=== PATIENT | male | born 1955 | race Caucasian/White ===

== ENCOUNTER → 2020-01-28 09:00 | Outpatient (BNVA) | payer MEDICARE, SELFPAY | PROVIDERS: PCP Family Medicine; Visit Provider Nurse Practitioner Family | DX: I10 Essential (primary) hypertension (principal); Z68.27 Body mass index [BMI] 27.0-27.9, adult; R03.0 Elevated blood-pressure reading, without diagnosis of hypertension | CPT/HCPCS: 80053; 80061; 84439; 84443; 85025 ==

== ENCOUNTER → 2021-01-30 10:17 | Outpatient (BNVA) | payer MEDICARE, SELFPAY | PROVIDERS: PCP Family Medicine; Visit Provider Nurse Practitioner Family | DX: I10 Essential (primary) hypertension (principal); Z68.27 Body mass index [BMI] 27.0-27.9, adult | CPT/HCPCS: 80053; 80061; 84439; 84443; 85025 ==

== ENCOUNTER → 2021-08-08 12:31 | Outpatient (BNVA) | payer MEDICARE, SELFPAY | PROVIDERS: PCP Family Medicine; Visit Provider Nurse Practitioner Family | DX: R31.0 Gross hematuria (principal) | CPT/HCPCS: 51798; 52000; 81003; 84153; 99203 ==

== ENCOUNTER 2021-08-09 13:10 | Outpatient (CLI) | payer MEDICARE, SELFPAY | END 2021-08-09 13:11 | disposition home or self-care (01) | LOC: LAB 13:13 | PROVIDERS: PCP Family Medicine; Visit Provider Urology | DX: R31.0 Gross hematuria (principal) | CPT/HCPCS: 87086; 88112 ==

== ENCOUNTER 2021-09-14 09:20 | Outpatient (CLI) | payer MEDICARE, SELFPAY ==
--- NOTE | 2021-09-14 10:00 | CT_ITS ---
WS: [id number] CT ABDOMEN PELVIS TECHNIQUE: Noncontrast CT of the abdomen and contrast-enhanced CT of the abdomen and pelvis with enid nal and sagittal reformatted images. CLINICAL INFORMATION: GROSS HEMATURIA COMPARISON: None. DLP: 3750.[address] scans at [facility] use at least one of these dose optimization techniques: automated e xposure control; mA and/or kV adjustment per patient size (includes targeted exams where dose is matc hed to clinical indication); or iterative reconstruction. FINDINGS: Diffuse fatty infiltration of the liver. Normal portal vein and splenic vein. Normal gallbladder. Nor mal GE junction. Normal spleen. Normal pancreas. Lung bases are well aerated. Normal caliber abdomina l aorta. Aortic calcification. Heterogeneous enhancing enlarged prostate measuring 4.5 CM. Recommend correlation PSA. Sigmoid diverticulosis. No evidence of acute diverticulitis. Fat-containing RIGHT in guinal hernia. Adrenal glands are normal. Normal renal parenchymal enhancement. No hydronephrosis. No obstructing re nal or ureteral calculi. Normal ureteral excretion on the delayed imaging. Hypertrophic changes lumbar spine. Mild perinephric edema can be seen with renal insufficiency. CT/CT abdomen pelvis wo/w [id number] IMPRESSION: 1. Normal bilateral renal parenchymal enhancement. No hydronephrosis. 2. No obstructing renal or ureteral calculi. 3. Normal excretion on the delayed images. 4. Bladder appears normal. 5. Heterogeneous enlarged prostate measuring 4.5 CM. Recommend correlation PSA . 6. No other acute findings.
[2021-09-14 10:21] LABS: Blood Urea Nitrogen 24 mg/dL (8-23)
[2021-09-14 10:22] LABS: Glomerular Filtration Rate 66.8 mL/min (90-130)
[2021-09-14] MEDS: iohexol 300 mg/mL 100 mL Btl IV (10:52)
== END 2021-09-14 09:21 | disposition home or self-care (01) ==
PROVIDERS: PCP Family Medicine; Visit Provider Urology
DX: R31.0 Gross hematuria (principal); N40.0 Benign prostatic hyperplasia without lower urinary tract symptoms
CPT/HCPCS: 74178; 81003; 82565; 84520; 99213

== ENCOUNTER → 2022-05-10 16:05 | Outpatient (BNVA) | payer MEDICARE, SELFPAY | PROVIDERS: PCP Family Medicine; Visit Provider Nurse Practitioner Family | DX: I10 Essential (primary) hypertension (principal); Z68.27 Body mass index [BMI] 27.0-27.9, adult | CPT/HCPCS: 80053; 80061; 84443 ==

== ENCOUNTER → 2022-09-12 07:44 | Outpatient (BNVA) | payer MEDICARE, SELFPAY | PROVIDERS: PCP Family Medicine; Visit Provider Urology | DX: R31.0 Gross hematuria (principal) | CPT/HCPCS: 81003; 99213 ==

== ENCOUNTER → 2022-09-30 15:27 | Outpatient (BNVA) | payer MEDICARE, SELFPAY | PROVIDERS: PCP Family Medicine; Visit Provider Otolaryngology | DX: H93.13 Tinnitus, bilateral (principal); J34.2 Deviated nasal septum | CPT/HCPCS: 99203 ==

== ENCOUNTER → 2022-10-07 14:45 | Outpatient (BNVA) | payer MEDICARE, SELFPAY | PROVIDERS: PCP Family Medicine; Referring Provider Nurse Practitioner Family; Visit Provider Dermatology | DX: L57.0 Actinic keratosis (principal); D04.61 Carcinoma in situ of skin of right upper limb, including shoulder; D22.5 Melanocytic nevi of trunk; L81.4 Other melanin hyperpigmentation; L82.1 Other seborrheic keratosis; Z12.83 Encounter for screening for malignant neoplasm of skin; Z71.89 Other specified counseling | CPT/HCPCS: 11102; 17000; 17003; 99203 ==

== ENCOUNTER → 2022-10-28 11:01 | Outpatient (BNVA) | payer MEDICARE, SELFPAY | PROVIDERS: PCP Family Medicine; Visit Provider Dermatology | DX: D04.61 Carcinoma in situ of skin of right upper limb, including shoulder (principal) | CPT/HCPCS: 17262 ==

== ENCOUNTER 2023-01-08 13:31 | Outpatient (CLI) | payer MEDICARE, SELFPAY ==
--- NOTE | 2023-01-08 13:36 | XR_ITS ---
WS: [id number] EXAMINATION: XR lumbar spine 2-3V* [id number] REASON FOR EXAM: M54.50 - Low back pain, unspecified COMPARISON: None available. ORDER DATE: 01/08/2023 1:38 PM FINDINGS: Generalized degenerative spinal changes are seen including moderate degenerative endplate changes and marginal osteophytes. There is prominent narrowing of the intervertebral disc with vacuum disc french e at L5-S1. There is no evidence of acute compression deformities or spondylolisthesis. 5 degree levo scoliosis centered at the mid lumbar level faint calcification superimpose the upper half of the left kidney may represent renal calculi. There is prominent atherosclerotic aortoiliac calcified plaque IMPRESSION: MODERATE DEGENERATIVE SPINE CHANGE AND SPONDYLOSIS.
== END 2023-01-08 13:32 | disposition home or self-care (01) ==
PROVIDERS: PCP Family Medicine; Visit Provider Family Medicine
DX: M47.896 Other spondylosis, lumbar region (principal); M54.50 Low back pain, unspecified
CPT/HCPCS: 72100

== ENCOUNTER 2023-02-05 14:59 | Outpatient (CLI) | payer MEDICARE, SELFPAY ==
--- NOTE | 2023-02-05 15:15 | MR_ITS ---
WS: [id number] MRI LUMBAR SPINE NONCONTRAST HISTORY: Chronic low back pain down both legs. COMPARISON: Lumbar spine radiographs 01/08/2023 TECHNIQUE: Sagittal and axial multisequence imaging is submitted. Mild cervical spondylosis. Central disc protrusion at T3-4 with mild contact on the thoracic cord. LEFT lumbar scoliosis. Disc spaces are narrowed and desiccated. Disc bulging and osteophytes at all levels. Conus terminates normally at L1-2 disc level. L1-L2: Diffuse moderate annular disc bulging with fissures centrally. Mild ligamentum flavum and face t arthritis. Disc bulging contributing to mild subarticular and foraminal stenosis. L2-L3: Diffuse annular disc bulging with a moderate to large central disc protrusion contacting and d eforming the thecal sac and the nerve roots. There is also disc contact on the traversing L3 nerve ro ots. Moderate to severe central, bilateral subarticular recess and foraminal stenosis, greater on the RIGHT than the LEFT. L3-L4: Diffuse annular disc bulging asymmetric to the LEFT. Marked ligamentum flavum and facet arthri tis. Combination of findings causing moderate to severe central, bilateral subarticular recess and fo raminal stenosis, LEFT greater than RIGHT. There is significant contact on the traversing L4 nerve ro ots. L4-L5: Marked annular disc bulging with a central broad-based disc protrusion. Additional smaller dis c protrusions versus annular bulging in the foramina. There is severe central and bilateral subarticu lar recess stenosis. Moderate to severe foraminal stenosis. Severe ligamentum flavum and facet arthri tis. L5-S1: Marked annular disc bulging and osteophytic ridging. Central to LEFT paracentral disc protrusi on with significant encroachment into the subarticular recess and contact on the S1 nerve root. There is additional contact on the RIGHT S1 nerve root but to a lesser extent. Severe central and bilatera l subarticular recess and LEFT foramen stenosis. Moderate RIGHT foramen stenosis. IMPRESSION: 1. Advanced degenerative disc and spondylitic changes throughout the lumbar spine with multiple level s of stenosis. 2. L2-3: Moderate to severe central, bilateral subarticular recess and foraminal stenosis. Significan t disc contact on the traversing L3 nerve roots. 3. L3-4: Moderate to severe central, bilateral subarticular recess and foraminal stenosis, LEFT great er than RIGHT. Significant contact on the traversing L4 nerve roots. 4. L4-5: Severe central and bilateral subarticular recess stenosis. Moderate to severe foraminal sten osis. Severe ligamentum flavum and facet arthritis. 5. L5-S1: Central to LEFT paracentral disc protrusion with significant encroachment into the subartic ular recess. Greatest contact on the LEFT S1 nerve root but both nerve roots are involved. Severe nabeel tral, bilateral subarticular recess and LEFT foramen stenosis. Moderate RIGHT foramen stenosis. 6. No acute fracture. Degenerative LEFT scoliosis.
== END 2023-02-05 15:00 | disposition home or self-care (01) ==
LOC: RAD 15:00
PROVIDERS: PCP Family Medicine; Visit Provider Family Medicine
DX: M47.27 Other spondylosis with radiculopathy, lumbosacral region (principal); M51.17 Intervertebral disc disorders with radiculopathy, lumbosacral region; M48.07 Spinal stenosis, lumbosacral region; M41.57 Other secondary scoliosis, lumbosacral region; G89.29 Other chronic pain; H90.3 Sensorineural hearing loss, bilateral; H93.13 Tinnitus, bilateral
CPT/HCPCS: 72148; 99214

== ENCOUNTER 2023-04-01 12:41 | Outpatient (CLI) | payer MEDICARE, SELFPAY ==
--- NOTE | 2023-04-01 13:00 | MR_ITS ---
WS: [id number] MRI HEAD WITH CONTRAST WITH ATTENTION TO THE INTERNAL AUDITORY CANALS TECHNIQUE: Sagittal T1, T2 axial, T2 axial flair, axial susceptibility weighted imaging, axial diffus ion weighted images, and coronal T2 images were obtained. Pre and post T1 axial and post T1 coronal i mages. ADC and FSPGR images. Post gadolinium images with attention to the internal auditory canals. A xial fiesta imaging. CLINICAL INFORMATION: hearing loss COMPARISON: None. FINDINGS: No evidence of restricted diffusion to suggest acute ischemia. Ventricular system and basilar ciste rns are patent. No hemosiderin on the susceptibly weighted images. Normal posterior fossa. Normal vas cular flow voids at the skull base. No extra-axial fluid collections. No evidence of mass or mass eff ect. Mild mucosal thickening in the paranasal sinuses. Mastoid air cells are well aerated. Normal pos terior nasopharynx. Minimal small vessel changes. Mild parenchymal volume loss. Proximal 7th and 8th cranial nerves are n ormal in appearance. Normal trigeminal nerve root entry zones. No evidence of enhancing IAC or CP ang le mass. No abnormal intracranial enhancement. Normal dural venous sinuses. IMPRESSION: 1. No evidence of restricted diffusion to suggest acute ischemia. 2. Minimal small vessel changes. Mild parenchymal volume loss. 3. No evidence of enhancing IAC or CP angle mass. 4. Mild mucosal thickening in the paranasal sinuses. Mastoid air cells are well aerated.
[2023-04-01] MEDS: gadobenate dimeglumine 20 mL vial IV (13:37)
== END 2023-04-01 12:42 | disposition home or self-care (01) ==
LOC: RAD 12:42
PROVIDERS: PCP Family Medicine; Visit Provider Otolaryngology
DX: H90.3 Sensorineural hearing loss, bilateral (principal)
CPT/HCPCS: 70553; A9577

== ENCOUNTER → 2023-04-22 08:51 | Outpatient (BNVA) | payer MEDICARE, SELFPAY | PROVIDERS: PCP Family Medicine; Visit Provider Orthopaedic Surgery | DX: M48.062 Spinal stenosis, lumbar region with neurogenic claudication; Z01.812 Encounter for preprocedural laboratory examination | CPT/HCPCS: 36415; 80053; 81003; 85025; 99204 ==

== ENCOUNTER → 2023-05-01 15:13 | Outpatient (BNVA) | payer MEDICARE, SELFPAY | PROVIDERS: PCP Family Medicine; Visit Provider Dermatology | DX: Z85.828 Personal history of other malignant neoplasm of skin (principal); L82.1 Other seborrheic keratosis; L82.0 Inflamed seborrheic keratosis; D48.5 Neoplasm of uncertain behavior of skin; L57.0 Actinic keratosis; L57.8 Other skin changes due to chronic exposure to nonionizing radiation | CPT/HCPCS: 11102; 17000; 17110; 99213 ==

== ENCOUNTER 2023-05-15 05:49 | Day surgery (SDC) | payer MEDICARE, SELFPAY ==
[2023-05-15] VITALS (11 sets, daily range): BP systolic 136–170; BP diastolic 77–96; PULSE 63–86; RESP 16–19; TEMP 36.1–36.5; O2SAT 90–96; BMI 27.2
--- NOTE | 2023-05-15 | XR_ITS ---
WS: [id number] XR lumbar spine 1V [id number] REASON FOR EXAM: or pic, decompression FINDINGS: Surgical instrument overlying the right L5-S1 interspace. Surgical instrument overlying the right L4-L5 interspace. IMPRESSION: Lumbar spine level localization and surgery.
--- NOTE | 2023-05-15 06:25 | W.PM.OPSUD ---
Surgery/Procedure H&P Update DATE OF PROCEDURE: May 15, 2023 DATE H&P PERFORMED: 05/08/23 H&P UPDATE INFORMATION: I have reviewed H&P completed within last 30 days, I have examined patient prior to procedure and No changes to prior documentation PREOP DIAGNOSIS: Lumbar stenosis with neurogenic claudication PLANNED PROCEDURE: Operation Date: 05/15/23 07:00 Proposed Procedures p Lumbar Spine Decompression(right L4/5,L5/S1)(Right) - Charlie Morris DO
[2023-05-15] MEDS: sodium chloride 0.9% 1,000 ML 30 ML IV (06:34)
--- NOTE | 2023-05-15 06:44 | ANES.PREANE2 ---
Pre-Anesthetic Assessment Height/Weight: Height 1.78 m Weight 86.183 kg Temp Pulse Resp BP Pulse Ox O2 Del Method 97 F L 63 18 170/95 96 Room Air 05/15/23 06:08 05/15/23 06:08 05/15/23 06:08 05/15/23 06:08 05/15/23 06:08 05/15/23 06:19 Preop Diagnosis: Lumbar stenosis with neurogenic claudication Operation Date: 05/15/23 07:00 Proposed Procedures p Lumbar Spine Decompression(right L4/5,L5/S1)(Right) - Charlie Morris, Last intake: Intake Last Liquid Date 05/14/23 Last Liquid Time 22:00 Last Solid Date 05/14/23 Last Solid Time 22:00 Social No alcohol and No tobacco Exam alert, oriented x 3, clear to auscultation bilaterally and regular rate & rhythm Airway Submandibular: within normal limits Cervical ROM: within normal limits Mallampati: Class I Dentition: false Pulmonary None reported CV/HEM Hypertension Anesthetic Plan ASA status: 2 Anesthesia: General Risk of > 500 ml blood loss (7ml/kg in children): No Medications/Allergies Home Medications Medication Instructions Recorded Confirmed Last Taken Type cyproheptadine 4 mg tablet 4 mg PO DAILY #90 tabs 05/10/22 05/14/23 05/14/23 Rx ibuprofen 800 mg tablet 800 mg PO TID PRN pain #90 tabs 01/13/23 05/14/23 05/07/23 Rx amlodipine 10 mg tablet 10 mg PO DAILY 05/14/23 05/14/23 05/15/23 History losartan 50 mg tablet 50 mg PO DAILY 05/14/23 05/14/23 05/14/23 History Allergies Allergy/AdvReac Type Severity Reaction Status Date / Time No Known Allergies Allergy Verified 05/14/23 12:47 Current Medications Generic Name Dose Route Start Last Admin Trade Name Freq PRN Reason Stop Dose Admin Sodium Chloride 1,000 mls @ 30 mls/hr 05/15/23 06:00 05/15/23 06:34 Sodium Chloride 0.9% IV 05/16/23 05:59 30 mls/hr .Q24H ERICK Administration PFSH Anesthesia Medical History Dyshidrosis Chronic pain of left knee Erectile dysfunction Gross hematuria Essential hypertension Eczema Surgical History History of arthroscopy of right shoulder Family History Father , AT AGE 70 Heart disease Mother , AT AGE 64 of unknown cause Social History Smoking and tobacco/nicotine status: former use of tobacco/nicotine Alcohol intake: current Alcohol intake frequency: few times a week Alcohol type: beer Substance/Drug Use: never Marital status: Current occupational status: employed Data Anesthesia Cardiac Studies: No Data to Display
[2023-05-15] MEDS: ceFAZolin 2,000 MG in sodium chloride 0.9% (plus) 50 ML 100 MG IV (06:57)
[2023-05-15] MEDS: lidocaine-epi 1% 20 mL INJ INJECTION (08:17)
--- NOTE | 2023-05-15 08:53 | PM.OP ---
Operative Report Date of procedure: May 15, 2023 Pre-op diagnosis: Lumbar stenosis with neurogenic claudication Post-op diagnosis: same Procedure done: 1. L4-5 laminectomy with partial facetectomy 2. L5-S1 laminectomy with partial facetectomy Surgeon: Charlie Morris DO Estimated blood loss (mL): 10 Complications: Dural tear at L5-S1 underneath the sacral lamina more distal Procedure: 1. L4-5 laminectomy with partial facetectomy 2. L5-S1 laminectomy with partial facetectomy Patient is brought to the operative suite. After undergoing anesthesia they are placed in the prone position. All areas of impingement are well padded. Patient is then prepped and draped in the normal sterile fashion. A skin incision is made over the L5/S1 level. This is confirmed under c-arm guidance. A series of dilators are passed and the tubular retractor is docked on the L5 lamina. A bovie is used to clear the soft tissue off the lamina and the L 5/S1 facet joint. A high speed marek is then used to perform the laminectomy and take down the medial aspect of the L 5/S1 facet joint. A kerrison rongeure was then used to take down the remaining lamina and smooth the edge of the laminectomy up to the point where the ligamentum flavum attaches. Attention was then brought to the medial aspect of the facet joint. The remaining medial aspect of the superior and inferior aspect of the facet joint were taken down with the kerrison from the pedicle of L5 to S1. The facet joint had significant hypertrophy. Attention was then brought to the Ligamentum Flavum. The ligament was taken down from the lamina of L5 to S1 and out medially to the remaining facet joint. The ligament was thick. The dura was then exposed. As I was putting ligament off distally and the facet underneath the S1 lamina stenosis there is fluid and appeared to be a dural tear. I never did see the actual tear. I put a DuraGen patch and DuraSeal The L5 nerve was then traced with a curette out the L5/S1 foramen and found to be adequately decompressed. The S1 nerve was traced with a curette around the S1 pedicle. The lateral recess was opened with a kerrison helping to further decompress the S1 nerve. Wound is then irrigated copiously with saline and surgiflo is used to stop any bleeding. The tubular retractor is removed and the A skin incision is made over the L4-5 level. This is confirmed under c-arm guidance. A series of dilators are passed and the tubular retractor is docked on the L4 lamina. A bovie is used to clear the soft tissue off the lamina and the L 4/5 facet joint. A high speed marek is then used to perform the laminectomy and take down the medial aspect of the L 4/5 facet joint. A kerrison rongeure was then used to take down the remaining lamina and smooth the edge of the laminectomy up to the point where the ligamentum flavum attaches. Attention was then brought to the medial aspect of the facet joint. The remaining medial aspect of the superior and inferior aspect of the facet joint were taken down with the kerrison from the pedicle of L4 to L 5. The facet joint had significant hypertrophy. Attention was then brought to the Ligamentum Flavum. The ligament was taken down from the lamina of L4 to L5 and out medially to the remaining facet joint. The ligament was extremely thick. The dura was then exposed. The dura was in good repair. The L4 nerve was then traced with a curette out the L4/5 foramen and found to be adequately decompressed. The L5 nerve was traced with a curette around the L5 pedicle. The lateral recess was opened with a kerrison helping to further decompress the L5 nerve. Wound is then irrigated copiously with saline and surgiflo is used to stop any bleeding. The tubular retractor is removed and the wound is closed with vicryl and monocryl suture. Glue is then used to protect the wound. A sterile dressing is then placed. Patient was then placed in the supine position and transferred to the PACU in stable condition.
[2023-05-15] MEDS: HYDROcodone-acetaminophen 5-325 mg Tablet 1 TAB PO (09:40)
--- NOTE | 2023-05-15 14:21 | ANE.PACU2 ---
Inpatient post-anesthesia follow up: Vital signs: Temperature 97.7 F Pulse Rate 65 Respiratory Rate 18 Blood Pressure 148/78 Pulse Oximetry 93 Oxygen Delivery Me thod Room Air Oxygen Flow Rate 2 Fraction of Inspir ed Oxygen Hydration adequate: Yes Nausea and vomiting: No Pain level: 1 Mental status: Baseline Additional Comments: no apparent anesthetic complications noted.
== END 2023-05-15 10:35 | disposition home or self-care (01) ==
PROVIDERS: PCP Family Medicine; Visit Provider Orthopaedic Surgery
PROC: (CPT 63005; principal; 2023-05-15 07:00)
DX: M48.062 Spinal stenosis, lumbar region with neurogenic claudication (principal); I10 Essential (primary) hypertension; Z87.891 Personal history of nicotine dependence
CPT/HCPCS: 63047; 63048; 72020; 76000; J0690; J2250; J2371; J2704; J3010; J3490; J7030

== ENCOUNTER → 2023-05-23 10:18 | Outpatient (BNVA) | payer MEDICARE, SELFPAY | PROVIDERS: PCP Family Medicine; Visit Provider Otolaryngology | DX: H90.3 Sensorineural hearing loss, bilateral (principal); H93.13 Tinnitus, bilateral; J32.9 Chronic sinusitis, unspecified; J34.2 Deviated nasal septum | CPT/HCPCS: 99213 ==

== ENCOUNTER → 2023-05-26 09:19 | Outpatient (BNVA) | payer MEDICARE, SELFPAY | PROVIDERS: PCP Family Medicine; Visit Provider Nurse Practitioner Family | DX: Z12.5 Encounter for screening for malignant neoplasm of prostate (principal); I10 Essential (primary) hypertension | CPT/HCPCS: 80061; 84443; G0103 ==

== ENCOUNTER → 2023-05-30 08:20 | Outpatient (BNVA) | payer MEDICARE, SELFPAY | PROVIDERS: PCP Family Medicine; Visit Provider Orthopaedic Surgery | DX: Z47.89 Encounter for other orthopedic aftercare | CPT/HCPCS: 99024 ==

== ENCOUNTER 2023-06-10 09:51 | Outpatient (CLI) | payer MEDICARE, SELFPAY ==
--- NOTE | 2023-06-10 10:00 | CT_ITS ---
WS: [id number] CT SINUSES TECHNIQUE: Noncontrast CT of the paranasal sinuses with coronal and sagittal reformatted images. CLINICAL INFORMATION: sinuses COMPARISON: None. DLP: 387.[address] scans at [facility] use at least one of these dose optimization techniques: automated e xposure control; mA and/or kV adjustment per patient size (includes targeted exams where dose is matc hed to clinical indication); or iterative reconstruction. FINDINGS: Mild LEFT RIGHT nasal septal deviation measuring 5.3 mm. Mild mucosal thickening in the frontal sinus es opacification of the LEFT greater than RIGHT frontoethmoidal recesses. Mild mucosal thickening in the ethmoid air cells. Mild mucosal thickening in the maxillary sinuses measuring 6 mm on the LEFT an d 5 mm on the RIGHT. Mild narrowing of the ostiomeatal units bilaterally which remain patent. Mastoid air cells are well aerated. Cavernous carotid calcification. Normal posterior nasopharynx. No rmal parapharyngeal fat. Intracranial vascular calcification. IMPRESSION: 1. Mild LEFT RIGHT nasal septal deviation measuring 5.3 mm 2. Mild mucosal thickening in the frontal sinuses with opacification of the LEFT greater than RIGHT frontoethmoidal recesses. 3. Mild mucosal thickening in the ethmoid air cells and maxillary sinuses described above. 4. Mastoid air cells are well aerated.
== END 2023-06-10 09:52 | disposition home or self-care (01) ==
LOC: RAD 09:52
PROVIDERS: PCP Family Medicine; Visit Provider Otolaryngology
DX: J32.9 Chronic sinusitis, unspecified (principal); J34.2 Deviated nasal septum
CPT/HCPCS: 70486

== ENCOUNTER → 2023-06-26 10:41 | Outpatient (BNVA) | payer MEDICARE, SELFPAY | PROVIDERS: PCP Family Medicine; Visit Provider Orthopaedic Surgery | DX: Z98.890 Other specified postprocedural states (principal) | CPT/HCPCS: 99024 ==

== ENCOUNTER → 2023-08-07 10:44 | Outpatient (BNVA) | payer MEDICARE, SELFPAY | PROVIDERS: PCP Family Medicine; Visit Provider Orthopaedic Surgery | DX: Z98.890 Other specified postprocedural states (principal) | CPT/HCPCS: 99024 ==

== ENCOUNTER → 2023-12-03 08:50 | Outpatient (BNVA) | payer MEDICARE, SELFPAY | PROVIDERS: PCP Family Medicine; Visit Provider Nurse Practitioner Family | DX: I10 Essential (primary) hypertension (principal) | CPT/HCPCS: 80053; 80061 ==

== ENCOUNTER → 2024-04-21 08:09 | Outpatient (BNVA) | payer MEDICARE, SELFPAY | PROVIDERS: PCP Family Medicine; Visit Provider Nurse Practitioner Family | DX: L82.1 Other seborrheic keratosis (principal); D17.1 Benign lipomatous neoplasm of skin and subcutaneous tissue of trunk; L81.4 Other melanin hyperpigmentation; L57.8 Other skin changes due to chronic exposure to nonionizing radiation; Z08 Encounter for follow-up examination after completed treatment for malignant neoplasm | CPT/HCPCS: 17000; 99213 ==

== ENCOUNTER → 2024-07-21 10:30 | Outpatient (BNVA) | payer MEDICARE, SELFPAY | PROVIDERS: PCP Nurse Practitioner Family; Visit Provider Nurse Practitioner Family | DX: E78.00 Pure hypercholesterolemia, unspecified (principal) | CPT/HCPCS: 80053; 80061 ==

== ENCOUNTER → 2024-10-19 15:39 | Outpatient (BNVA) | payer MEDICARE, SELFPAY | PROVIDERS: PCP Nurse Practitioner Family; Visit Provider Nurse Practitioner Family | DX: L82.1 Other seborrheic keratosis (principal); D17.1 Benign lipomatous neoplasm of skin and subcutaneous tissue of trunk; L81.4 Other melanin hyperpigmentation; L57.8 Other skin changes due to chronic exposure to nonionizing radiation; Z08 Encounter for follow-up examination after completed treatment for malignant neoplasm; Z85.828 Personal history of other malignant neoplasm of skin; L57.0 Actinic keratosis | CPT/HCPCS: 17000; 99213 ==

== ENCOUNTER → 2025-02-17 08:56 | Outpatient (BNVA) | payer MEDICARE, SELFPAY | PROVIDERS: PCP Nurse Practitioner Family; Visit Provider Nurse Practitioner Family | DX: I10 Essential (primary) hypertension (principal) | CPT/HCPCS: 80053; 80061 ==